=== PATIENT | male | born 1985 | race Caucasian/White ===

== ENCOUNTER 2016-06-02 13:53 | Emergency (ER) | END 2016-06-02 15:40 | disposition home or self-care (01) | DX: Z76.0 Encounter for issue of repeat prescription (principal); E11.9 Type 2 diabetes mellitus without complications; Z79.84 Long term (current) use of oral hypoglycemic drugs ==

== ENCOUNTER 2016-11-24 07:42 | Emergency (ER) | payer MEDICAID ==
[~2016-11-24] VITALS: Ht 170.2 cm; Wt 106.5 kg
[~2016-11-24 07:42] MED LIST: MTF1000T PO
[2016-11-24 07:44] VITALS: Ht 170.2 cm; Wt 106.5 kg
--- NOTE | 2016-11-24 08:18 | ERD ---
ER Documentation Chief Complaint Date/Time DATE: 11/24/16 TIME: 08:14 Chief Complaint needs rx for metformin 1000mg HPI This is a 31-year-old male presenting to emergency department for medication refill. Patient states he was diagnosed here in the ER with diabetes mellitus in May 2016. Patient was started on metformin 1000 mg twice a day. Patient has been out of his medication for several months. Patient states he has been unable to follow-up with primary care provider because of insurance changes. Patient denies checking his blood glucose at home. Denies Polyphagia, polydipsia or polyuria. He denies headache or dizziness or abdominal pain. He has no symptoms today or complaints. He is just here for medication refill. ROS All systems reviewed and are negative except as per history of present illness. Medications Home Meds Active Scripts Metformin* (Glucophage*) 1,000 Mg Tablet, 1000 MG PO BID, #60 TAB Prov:KIMBERLYN TELLEZ NP 11/24/16 Metformin* (Glucophage*) 1,000 Mg Tablet, 1000 MG PO BID, #60 TAB Prov:KLAUDIA WRIGHT PA-C 06/02/16 Metformin* (Glucophage*) 1,000 Mg Tablet, 1000 MG PO BID, #60 TAB Prov:TERRY ORTIZ DO 04/30/16 Allergies Allergies: Coded Allergies: No Known Allergy (Unverified , 11/24/16) PMhx/Soc Medical and Surgical Hx: pt denies Surgical Hx History of Surgery: No Anesthesia Reaction: No Hx Neurological Disorder: No Hx Respiratory Disorders: No Hx Cardiac Disorders: No Hx Psychiatric Problems: No Hx Miscellaneous Medical Probl: Yes (DM) Hx Alcohol Use: No Hx Substance Use: No Hx Tobacco Use: No Smoking Status: Never smoker Physical Exam Vitals Vital Signs Date Time Temp Pulse Resp B/P Pulse Ox O2 Delivery O2 Flow Rate FiO2 11/24/16 07:44 98.3 55 18 148/82 99 Physical Exam Const: No acute distress, alert Head: Atraumatic Eyes: Normal Conjunctiva ENT: Normal External Ears, Nose and Mouth. Neck: Full range of motion..~ No meningismus. Resp: Clear to auscultation bilaterally Cardio: Regular rate and rhythm, no murmurs Abd: Soft, non tender, non distended. Normal bowel sounds Skin: No petechiae or rashes Back: No midline or flank tenderness Ext: No cyanosis, or edema Neur: Awake and alert Psych: Normal Mood and Affect Procedures/MDM MDM: This is a 31-year-old male presenting to emergency department needing medication refill. Patient states he is taking metformin 1000 mg twice a day. Patient states he has been out of his medication for several months because he is been unable to see his primary care provider. Patient is working on changing his insurance. No complaints at this time. No polydipsia, polyphagia or polyuria. No dizziness, headache or abdominal pain. No paresthesias. No vision changes. Vital signs remained stable. Patient is nontoxic appearing. Patient is appropriate for outpatient management and will given prescription for metformin 1000 mg #60. Instructed patient to follow-up with primary care provider in the next week for reassessment and additional management. Resources provided with discharge paperwork. Return to ED for any high fever, chest pain, difficulty breathing, shortness breath, wheezing, vomiting, diarrhea , abdominal pain or any new or worsening symptoms. Patient verbalizes understanding. All questions answered at discharge. Departure Diagnosis: Primary Impression: Encounter for medication refill Condition: Stable KIMBERLYN TELLEZ NP Nov 24, 2016 08:18
[2016-11-24] MEDS ORDERED: MTF1000T PO (08:19)
== END 2016-11-24 08:37 | disposition home or self-care (01) ==
LOC: FTE 07:42
DX: Z76.0 Encounter for issue of repeat prescription (principal); E11.9 Type 2 diabetes mellitus without complications; Z79.84 Long term (current) use of oral hypoglycemic drugs
CPT/HCPCS: 99281